=== PATIENT | female | born 1995 | race Caucasian/White ===

== ENCOUNTER 2020-01-08 16:38 | Emergency (ER) | payer OTHER ==
--- NOTE | 2020-01-08 17:48 | ER Document Report ---
ED Medical Screen (RME) - General Chief Complaint: Abdominal Cramping Stated Complaint: ABDOMINAL PAIN Time Seen by Provider: 01/08/20 17:38 Mode of Arrival: Ambulatory Information source: Patient Notes: Patient is an otherwise healthy 24-year-old female presenting to the emergency department with request for IUD placement evaluation. Patient reports she has had the IUD in place for a little over a year. She states that she called her primary care provider today as she has been having some low abdominal cramping and her provider wanted her to have her IUD checked. She denies any other symptoms other than low abdominal cramping. Exam: Abdomen soft, nontender. I have greeted and performed a rapid initial assessment of this patient. A comprehensive ED assessment and evaluation of the patient, analysis of test results and completion of the medical decision making process will be conducted by additional ED providers. I have specifically instructed the patient or family members with the patient to immediately return to any nursing staff should anything change in the patient's condition or with their chief complaint. - Related Data Allergies/Adverse Reactions: No Known Allergies Allergy (Unverified 01/08/20 17:13) Past Medical History - Social History Chew tobacco use (# tins/day): No Frequency of alcohol use: Occasional Drug Abuse: None Physical Exam - Vital signs Vitals: Temp Pulse Resp BP Pulse Ox 98.9 F 89 20 126/49 H 100 01/08/20 16:46 01/08/20 16:46 01/08/20 16:46 01/08/20 16:46 01/08/20 16:46 Course - Vital Signs Vital signs: Temp Pulse Resp BP Pulse Ox 98.1 F 89 20 126/49 H 100 01/08/20 17:15 01/08/20 16:46 01/08/20 16:46 01/08/20 16:46 01/08/20 16:46
[2020-01-08 18:45] LABS: APPEARANCE,URINE CLEAR; BILIRUBIN,URINE NEGATIVE (NEGATIVE); COLOR,URINE YELLOW; GLUCOSE, URINE NEGATIVE (NEGATIVE); KETONES,URINE NEGATIVE (NEGATIVE); LEUKOCYTE ESTERASE,URINE NEGATIVE (NEGATIVE); NITRITE,URINE NEGATIVE (NEGATIVE); PROTEIN,URINE NEGATIVE (NEGATIVE); UROBILINOGEN,URINE NEGATIVE mg/dL (<2.0)
[2020-01-08 18:56] LABS: ABSOLUTE EOSINOPHILS # (AUTO) 0.1 10^3/uL (0.0-0.6); ABSOLUTE LYMPHOCYTES (AUTO) 2.2 10^3/uL (0.5-4.7); ABSOLUTE MONOCYTES (AUTO) 0.5 10^3/uL (0.1-1.4); ABSOLUTE NEUT (AUTO) 4.3 10^3/uL (1.7-8.2); BASOPHILS % (AUTO) 0.2 % (0-2); EOSINOPHILS % (AUTO) 1.5 % (0-6); HEMATOCRIT 40.3 % (36.0-47.0); HEMOGLOBIN 14.2 g/dL (12.0-15.5); LYMPHOCYTES % (AUTO) 31.3 % (13-45); MEAN CORPUSCULAR HEMOGLOBIN 28.5 pg (27.0-33.4); MEAN CORPUSCULAR HGB CONC 35.3 g/dL (32.0-36.0); MEAN CORPUSCULAR VOLUME 81 fl (80-97); MONOCYTES % (AUTO) 6.7 % (3-13); PLATELET COUNT 325 10^3/uL (150-450); RED BLOOD COUNT 4.99 10^6/uL (3.72-5.28); RED CELL DISTRIBUTION WIDTH 13.5 % (11.5-14.0); SEGMENTED NEUTROPHILS % (AUTO) 60.3 % (42-78); TOTAL CELLS COUNTED % (AUTO) 100 %; WHITE BLOOD COUNT 7.1 10^3/uL (4.0-10.5)
--- NOTE | 2020-01-08 18:56 | RADIOLOGY REPORT (SQ) ---
EXAM DESCRIPTION: U/S NON OB PEL TV W/DOPPLER IMAGES COMPLETED DATE/TIME: 01/08/2020 5:47 pm REASON FOR STUDY: abd cramping/IUD eval . An IUD placed October 2018, spotting. COMPARISON: None. TECHNIQUE: Dynamic and static grayscale images acquired of the pelvis via transvaginal approach and recorded on PACS. Additional selected color Doppler and spectral images recorded. LIMITATIONS: None. FINDINGS: UTERUS: Contour normal. No mass. ENDOMETRIAL STRIPE: Intrauterine device is located normally within the endometrium. No focal or gen eralized thickening. No masses. CERVIX: No nabothian cysts. RIGHT OVARY AND DOPPLER: Right ovary not visualized. No adnexal mass. LEFT OVARY AND DOPPLER: Normal size. No worrisome masses. Normal arterial vascular flow without evide nce for torsion. FREE FLUID: None noted. OTHER: No other significant finding. MEASUREMENTS: UTERUS: 6.2 x 2.9 x 4.3 cm ENDOMETRIAL STRIPE: 3 mm RIGHT OVARY: Not visualized LEFT OVARY: 4 x 1.7 x 2.9 cm IMPRESSION: 1. Intrauterine device is located normally within the endometrium. 2. Normal sonographic appearance of the uterus and left ovary. The right ovary is not visualized. N o right adnexal mass. TECHNICAL DOCUMENTATION: JOB ID: [id number] 2010 [employer] All Rights Reserved Reading location - IP/workstation name: [email or web address]
[2020-01-08 19:19] LABS: ALBUMIN 4.8 g/dL (3.5-5.0); ALKALINE PHOSPHATASE 87 U/L (38-126); ANION GAP 7 (5-19); ASPARTATE AMINO TRANSFERASE 23 U/L (14-36); BILIRUBIN,TOTAL 0.4 mg/dL (0.2-1.3); BLOOD UREA NITROGEN 14 mg/dL (7-20); CALCIUM 9.8 mg/dL (8.4-10.2); CARBON DIOXIDE 28 mmol/L (22-30); CHLORIDE 104 mmol/L (98-107); GLUCOSE 97 mg/dL (75-110); POTASSIUM 4.4 mmol/L (3.6-5.0); TOTAL PROTEIN 7.8 g/dL (6.3-8.2)
--- NOTE | 2020-01-08 19:33 | ER Document Report ---
ED General - General Chief Complaint: Abdominal Cramping Stated Complaint: ABDOMINAL PAIN Time Seen by Provider: 01/08/20 17:38 Primary Care Provider: TARA,YOSELYN [Primary Care Provider] - Follow up as needed Mode of Arrival: Ambulatory Information source: Patient - HPI Notes: Patient presents with abdominal cramping. She states she has had this intermi ttently for several months. She is also had spotting and jumpbasting collar baster than normal periods.. She states the cramping has been intense over the last 1 to 2 days which prompted her to come into the emergency department. The cramping is bilateral lower quadrants. She states it feels better if she brings her knees up towards her chest it is worse if she is moving around. It is moderate to severe in intensity. It radiates across the abdomen. She denies any vaginal discharge. She is not currently that she knows of. She has had no types of abdominal or pelvic surgeries. No fevers. She denies any trouble with stool or urine. No vomiting. - Related Data Allergies/Adverse Reactions: No Known Allergies Allergy (Unverified 01/08/20 17:13) Past Medical History - General Information source: Patient - Social History Smoking Status: Never Smoker Chew tobacco use (# tins/day): No Frequency of alcohol use: Occasional Drug Abuse: None Family History: Reviewed & Not Pertinent Patient has suicidal ideation: No Patient has homicidal ideation: No Review of Systems - Review of Systems Constitutional: denies: Chills, Fever Cardiovascular: denies: Chest pain, Palpitations Respiratory: denies: Cough, Short of breath -: Yes All other systems reviewed and negative Physical Exam - Vital signs Vitals: Temp Pulse Resp BP Pulse Ox 98.9 F 89 20 126/49 H 100 01/08/20 16:46 01/08/20 16:46 01/08/20 16:46 01/08/20 16:46 01/08/20 16:46 Interpretation: Normal - General General appearance: Appears well, Alert - HEENT Head: Normocephalic, Atraumatic Eyes: Normal Pupils: PERRL - Respiratory Respiratory status: No respiratory distress Chest status: Nontender Breath sounds: Normal Chest palpation: Normal - Cardiovascular Rhythm: Regular Heart sounds: Normal auscultation Murmur: No - Abdominal Inspection: Normal Distension: No distension Bowel sounds: Normal Tenderness: Tender - Mild bilateral lower quadrant Organomegaly: No organomegaly - Genitourinary External exam: Normal Speculum exam: Normal, Cervix closed Vaginal bleeding: None Bimanuel exam: Adnexal tenderness - Mild bilateral. No masses.. No: Cervical motion tender, Bladder/Urethral tender, Adnexal mass, Uterus enlarged - Back Back: Normal, Nontender - Extremities General upper extremity: Normal inspection, Nontender, Normal color, Normal ROM, Normal temperature General lower extremity: Normal inspection, Nontender, Normal color, Normal ROM, Normal temperature, Normal weight bearing. No: Chiki's sign - Neurological Neuro grossly intact: Yes Cognition: Normal Orientation: AAOx4 Ajit Coma Scale Eye Opening: Spontaneous [place] Coma Scale Verbal: Oriented Ajit Coma Scale Motor: Obeys Commands [place] Coma Scale Total: 15 Speech: Normal Motor strength normal: LUE, RUE, LLE, RLE Sensory: Normal - Psychological Associated symptoms: Normal affect, Normal mood - Skin Skin Temperature: Warm Skin Moisture: Dry Skin Color: Normal Course - Re-evaluation Re-evalutation: 01/08/20 19:30 Patient presents with vaginal spotting but otherwise decreased bleeding with periods. She also complains of abdominal cramping. On exam patient's pelvic exam is unremarkable for anything that would explain her pain. She did have some adnexal pain bilaterally on bimanual exam but no masses were felt and ultrasound was unremarkable. Laboratories are also unremarkable and patient is not . Patient has an IUD that appears to be in the correct position per ultrasound. No strings are seen on the pelvic exam and I did inform the patient of this fact. I have instructed the patient that I am going to discharge her home with pain medication and have her follow-up with her primary care physician at the [facility] for further evaluation. - Vital Signs Vital signs: Temp Pulse Resp BP Pulse Ox 98.1 F 89 20 126/49 H 100 01/08/20 17:15 01/08/20 16:46 01/08/20 16:46 01/08/20 16:46 01/08/20 16:46 - Laboratory Result Diagrams: 01/08/20 18:44 01/08/20 18:44 - Diagnostic Test Radiology reviewed: Image reviewed, Reports reviewed Discharge - Discharge Clinical Impression: Dysmenorrhea Condition: Stable Disposition: HOME, SELF-CARE Instructions: Dysmenorrhea ([facility]) Additional Instructions: Please contact your primary care physician as soon as possible to arrange follow-up Prescriptions: Tramadol HCl [Ultram] 50 mg PO Q6 PRN 3 Days #12 tablet PRN Reason: Referrals: [facility] [Primary [facility] Provider] - Follow up in 1 week
[2020-01-08 19:46] VITALS: BP 116/65
[2020-01-08 19:55] LABS: RBCS (WET MOUNT) RARE RBCS SEEN; T.VAGINALIS (WET MOUNT) NO TRICHOMONAS SEEN; WBCS (WET MOUNT) NO WBCS SEEN; YEAST (WET MOUNT) NO YEAST SEEN
[2020-01-08 21:32] LABS: CHLAM PCR NOT DETECTED (NOT DETECT)
== END 2020-01-08 19:48 | disposition home or self-care (01) ==
LOC: ER 16:38
DX: N94.6 Dysmenorrhea, unspecified (principal); R10.813 Right lower quadrant abdominal tenderness; R10.814 Left lower quadrant abdominal tenderness; Z97.5 Presence of (intrauterine) contraceptive device
CPT/HCPCS: 36415; 76830; 80053; 81001; 81025; 83690; 85025; 87210; 87491; 87591; 93976; 99284